=== PATIENT | male | born 1990 | race Two or more races ===

== ENCOUNTER 2016-10-03 11:08 | Emergency (ER) | payer MEDICAID, SELFPAY ==
[~2016-10-03] VITALS: Ht 180.3 cm; Wt 90.9 kg
[2016-10-03 11:09] VITALS: BP 115/62
[2016-10-03] MEDS ORDERED: KETOROLAC 30 MG/1 ML IM ONE (11:30)
[2016-10-03] MEDS ORDERED: KETOROLAC 30 MG/1 ML ONE (11:58)
== END 2016-10-03 13:05 | disposition home or self-care (01) ==
LOC: ED 12:46
DX: S39.012A Strain of muscle, fascia and tendon of lower back, initial encounter (principal); X58.XXXA Exposure to other specified factors, initial encounter; Y93.89 Activity, other specified; Y99.8 Other external cause status; Y92.89 Other specified places as the place of occurrence of the external cause
CPT/HCPCS: 72110; 73502; 96372; 99284; J1885